=== PATIENT | male | born 1995 | race Caucasian/White ===

== ENCOUNTER 2018-04-02 02:38 | Emergency (ER) | payer OTHER ==
[~2018-04-02] VITALS: Ht 165.1 cm; Wt 72.6 kg
--- NOTE | 2018-04-02 02:41 | ED PSYCHIATRIC COMPLAINT ---
See Addendum History of Present Illness General Chief Complaint: Psychiatric Related Complaint Stated Complaint: BIBA +SI Source: patient, EMS Exam Limitations: no limitations Vital Signs & Intake/Output Vital Signs & Intake/Output Vital Signs Date Time Temp Pulse Resp B/P B/P Pulse O2 O2 Flow FiO2 Mean Ox Delivery Rate 04/02 0249 102 22 144/87 98 Room Air Allergies Coded Allergies: metronidazole (From FLAGYL) (UNKNOWN 04/02/18) Triage Nurses Notes Reviewed? yes Onset: Gradual Duration: hour(s):, waxing and waning Timing: recent history Severity: moderate Associated Symptoms: anxiety, suicidal ideation HPI: 22 yo gentleman, h/o suicidality, BIBA for suicidality in the context of an argument with his girlfiend. "We were arguing and one thing led to another... I said some things I didn't mean ... and my brother called the police." He denies suicidality presently. He does report drinking alcohol, but denies other illicit drugs. He denies HI/hallucinations/seizures. Past History Travel History Traveled to [place] past 21 day No Medical History Any Pertinent Medical History? see below for history Psychiatric: depression Surgical History Surgical History: none Family History Hx Contributory? No Review of Systems Review of Systems Constitutional: Reports: no symptoms. EENTM: Reports: no symptoms. Respiratory: Reports: no symptoms. Cardiovascular: Reports: no symptoms. GI: Reports: no symptoms. Genitourinary: Reports: no symptoms. Musculoskeletal: Reports: no symptoms. Skin: Reports: no symptoms. Neurological/Psychological: Reports: no symptoms. Hematologic/Endocrine: Reports: no symptoms. Immunologic/Allergic: Reports: no symptoms. All Other Systems: Reviewed and Negative Physical Exam Physical Exam General Appearance: well developed/nourished, mild distress Head: atraumatic Eyes: Bilateral: normal appearance. Ears, Nose, Throat: normal pharynx, normal ENT inspection Neck: normal inspection, supple, full range of motion Respiratory: normal breath sounds, chest non-tender, no respiratory distress, quiet respiration, lungs clear Cardiovascular: regular rate/rhythm Gastrointestinal: normal bowel sounds, soft, non-tender Extremities: normal range of motion Neurological/Psychiatric: agitated, anxious Appearance/Memory/Insight: disheveled Behavoir/Eye Contact/Speech: cooperative Thoughts/Hallucinations: no apparent hallucination SAD PERSONS SAD PERSONS Response Value Male Sex? yes 1 Depression/Hopelessness? yes 2 Excessive Ethanol/Drug Use? yes 1 Rational Thinking Loss? yes 2 Single//? yes 1 Social Support? has support 0 Total 7 SAD PERSONS Done? yes Progress Differential Diagnosis: drug intoxication, hypoglycemia, hypothyroidism, depression Plan of Care: Orders Procedure Date/time Status Regular Diet 04/03 B Active Continuous Observation Monitor 04/02 240 Active URINE DRUG SCREEN FOR ER ONLY 04/02 240 Active ETHANOL 04/02 240 Complete COMPREHENSIVE METABOLIC PANEL 04/02 240 Complete CBC WITHOUT DIFFERENTIAL 04/02 240 Complete ED CRISIS PSYCH CONSULT 04/02 240 Active Current Medications Sig/Madalyn Start time Last Medication Dose Stop Time Status Admin Ibuprofen 600 MG 4 TIMES/DAY PRN 04/02 0330 AC 04/02 (Motrin) 0324 Lorazepam 1 MG 4 TIMES/DAY PRN 04/02 033 AC 04/02 (Ativan) 0324 Laboratory Tests 04/02/18 0454: Urine Opiates Screen Pending, Methadone Screen Pending, Barbiturate Screen Pending, Ur Phencyclidine Scrn Pending, Amphetamines Screen Pending, U Benzodiazepines Scrn Pending, Urine Cocaine Screen Pending, Urine Cannabis Screen Pending 04/02/18 0305: Anion Gap 11, Estimated GFR > 60, BUN/Creatinine Ratio 16.3, Glucose 108 H, Calcium 9.2, Total Bilirubin 0.5, AST 32, ALT 31, Alkaline Phosphatase 94, Total Protein 7.6, Albumin 5.0, Globulin 2.6, Albumin/Globulin Ratio 1.9, CBC w Diff NO MAN DIFF REQ, RBC 5.35, MCV 84.8, MCH 29.2, MCHC 34.5, RDW 13.3, MPV 10.0, Gran % 78.9 H, Lymphocytes % 16.6 L, Monocytes % 4.2, Eosinophils % 0.1, Basophils % 0.2, Absolute Granulocytes 8.3 H, Absolute Lymphocytes 1.8, Absolute Monocytes 0.4, Absolute Eosinophils 0, Absolute Basophils 0, Serum Alcohol 179.0 Departure Departure Disposition: STILL A PATIENT Condition: Stable Clinical Impression Primary Impression: Depression Departure Forms: Customer Survey General Discharge Information Comments pt signed out to dr. torres, 04/02/18, 7am, urine drug screen pending, jung warren in AM.
[2018-04-02 03:38] LABS: ABSOLUTE BASOPHIL COUNT 0 /CUMM (0.0-0.2); ABSOLUTE EOSINOPHIL COUNT 0 /CUMM (0.0-0.7); ABSOLUTE GRANULOCYTE CT 8.3 /CUMM (1.4-6.5); ABSOLUTE LYMPH COUNT 1.8 /CUMM (1.2-3.4); ABSOLUTE MONOCYTE COUNT 0.4 /CUMM (0.10-0.60); BASOPHIL % 0.2 % (0.0-2.0); EOSINOPHIL % 0.1 % (0-5); GRANULOCYTE % 78.9 % (42.2-75.2); HEMATOCRIT 45.4 % (42-52); MEAN CORPUSCULAR HGB 29.2 PG (27.0-31.0); MEAN CORPUSCULAR HGB CONC 34.5 G/DL (33.0-37.0); MEAN CORPUSCULAR VOLUME 84.8 FL (80.0-94.0); PLATELET COUNT 238 /CUMM (130-400); RBC DISTRIBUTION WIDTH 13.3 % (11.5-14.5); RED BLOOD CELL CT 5.35 /CUMM (4.70-6.10); WHITE BLOOD CELL COUNT 10.6 /CUMM (4.8-10.8)
[2018-04-02] MEDS ORDERED: XANAX0.25 M1 PO (09:09)
[2018-04-02 09:42] VITALS: BP 128/70
== END 2018-04-02 09:42 ==
LOC: EDSEX 02:38 → ERH 02:38
PROVIDERS: Pediatrics
DX: F32.9 Major depressive disorder, single episode, unspecified (principal); R45.851 Suicidal ideations; F10.10 Alcohol abuse, uncomplicated
CPT/HCPCS: 80307; G0480